=== PATIENT | male | born 1965 | race Caucasian/White ===

== ENCOUNTER 2016-09-21 22:43 | Emergency (ER) | payer SELFPAY ==
[~2016-09-21] VITALS: Ht 177.8 cm; Wt 77.1 kg
[2016-09-21 23:05] VITALS: BP 145/94
[2016-09-21] MEDS ORDERED: ACETAMINOPHEN-1 EAC1 ORAL (23:09)
[2016-09-21] MEDS ORDERED: Tylenol #3 tab (300mg/30mg) ORAL ONE (23:15)
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
[2016-09-21 23:26] VITALS: BP 145/94
== END 2016-09-21 23:26 | disposition home or self-care (01) ==
LOC: EDBD 22:43 → EMR 22:50
DX: M79.672 Pain in left foot (principal); M79.671 Pain in right foot
CPT/HCPCS: 99283